=== PATIENT | male | born 1980 | race Caucasian/White ===

== ENCOUNTER 2017-02-14 15:05 | Emergency (ER) | payer OTHER ==
[~2017-02-14] VITALS: Ht 185.4 cm; Wt 80.7 kg
== END 2017-02-14 16:50 | disposition home or self-care (01) ==
LOC: ED 15:05
DX: S61.234A Puncture wound without foreign body of right ring finger without damage to nail, initial encounter (principal); Z77.21 Contact with and (suspected) exposure to potentially hazardous body fluids; Z88.5 Allergy status to narcotic agent; Z98.52 Vasectomy status; W46.0XXA Contact with hypodermic needle, initial encounter
CPT/HCPCS: 84460; 86703; 86706; 86803; 99283